=== PATIENT | female | born 1955 | race Caucasian/White ===

== ENCOUNTER 2021-03-10 12:33 | Emergency (ER) | payer MEDICARE, OTHER ==
[2021-03-10 12:48] VITALS: BMI 23.5
[2021-03-10] MEDS ORDERED: ACETAMINOPHEN 325 MG TABLET (FP) PO ONE (13:56)
[2021-03-10] MEDS ORDERED: ACETAMINOPHEN 325 MG TABLET (FP) ONE (14:21)
[2021-03-10 16:18] VITALS: BP 116/68; PULSE 86; TEMP 98.6
== END 2021-03-10 16:18 | disposition home or self-care (01) ==
LOC: JCOVINFU 12:33 → JER 12:33
DX: J06.9 Acute upper respiratory infection, unspecified (principal); B34.9 Viral infection, unspecified; Z11.52 Encounter for screening for COVID-19
CPT/HCPCS: 71045-TC-FY; 99284-25; C9803; U0003; U0005

== ENCOUNTER 2024-06-16 11:42 | Emergency (ER) | payer MEDICARE, OTHER ==
[2024-06-16 11:56] VITALS: BP 158/68; PULSE 102; RESP 16; TEMP 97.9; BMI 23.8
[2024-06-16 13:41] LABS: VENOUS BASE EXCESS 0.9 mmol/L (-2-2); VENOUS O2 SATURATION 47.3 % (70-80); VENOUS PCO2 44.9 mmHg (38-52); VENOUS PH 7.386 (7.310-7.410)
[2024-06-16 13:43] LABS: EOS % 2.1 % (0-4.5); HEMATOCRIT 37.3 % (32.4-45.2); HEMOGLOBIN 12.4 GM/dL (10.7-15.3); LYMPH % 24.5 % (8-40); MCH 29.8 pg (25.7-33.7); MCHC 33.3 g/dl (32.0-36.0); MEAN CELL VOLUME 89.6 fl (80-96); MEAN PLT VOLUME 8.8 fl (7.5-11.1); MONO % 9.1 % (3.8-10.2); NEUT % 63.3 % (42.8-82.8); PLATELET COUNT 289 10^3/uL (134-434); RBC 4.16 M/mm3 (3.60-5.2); RDW 14.3 % (11.6-15.6); WHITE BLOOD COUNT 7.4 K/mm3 (4.0-10.0)
[2024-06-16 14:09] LABS: POTASSIUM 4.4 mmol/L (3.5-5.1)
[2024-06-16 14:13] LABS: ALBUMIN 3.7 g/dl (3.4-5.0); CALCIUM 9.8 mg/dL (8.5-10.1)
[2024-06-16 14:14] LABS: BLOOD UREA NITROGEN 18.1 mg/dL (7-18)
[2024-06-16 14:17] LABS: CREATININE 0.8 mg/dL (0.55-1.3)
[2024-06-16 14:18] LABS: BILIRUBIN,TOTAL 0.4 mg/dL (0.2-1); TOT PROT 7.4 g/dl (6.4-8.2)
[2024-06-16 14:39] LABS: INR 1.03 (0.83-1.09); PROTHROMBIN TIME (PATIENT) 11.6 SEC (9.7-13.0)
[2024-06-16 15:43] LABS: HIV INTERPRETATION NEGATIVE (NEGATIVE)
== END 2024-06-16 15:13 | disposition home or self-care (01) ==
LOC: JER 11:42
DX: R06.02 Shortness of breath (principal); R05.9 Cough, unspecified
CPT/HCPCS: 36415; 71045-TC-FY; 80053; 82803; 84443; 84484; 85025; 85379; 85610; 85730; 86803; 87389; 93005; 93010; 99284-25